=== PATIENT | female | born 1955 | race Caucasian/White ===

== ENCOUNTER 2018-04-04 18:53 | Emergency (ER) | payer OTHER ==
--- NOTE | 2018-04-04 19:00 | PDOC ---
Rapid Medical Evaluation Time Seen by Provider: 04/04/18 18:57 Medical Evaluation: 04/04/18 18:58 I have performed a brief in-person evaluation of this patient. The patient presents with a chief complaint of: b/l LE pain and itching x months , dx w/ ? b/l DVT on US today PMD Dr Ganga Lyles Pertinent physical exam findings:Legs unremarkable I have ordered the following:labs/US The patient will proceed to the ED for further evaluation. Discharge Disposition - Diagnosis Leg pain Qualifiers: Laterality: bilateral Qualified Code(s): M79.604 - Pain in right leg; M79.605 - Pain in left leg - Referrals - Patient Instructions - Post Discharge Activity
[2018-04-04 19:02] VITALS: BP 116/74; PULSE 85; TEMP 98.2; BMI 28.3
[2018-04-04] MEDS ORDERED: ACETAMINOPHEN 1000 MG/100 ML VIAL (NON FORMULARY) IVPB ONE (19:25)
--- NOTE | 2018-04-04 19:50 | PDOC ---
History of Present Illness - General Chief Complaint: Pain, Acute Stated Complaint: LEG PAIN Time Seen by Provider: 04/04/18 18:57 History Source: Patient - History of Present Illness Initial Comments: 04/04/18 19:44 The patient is a 62 year old Romanian speaking female with a PMH of dyslipidemia and chronic neck pain that presented to ED today complaining of lower extremity pain for two months that has been getting worse. It is worse in right leg than left, aggravating by walking, relieved by Ibuprophen. Today the pain is 8/10 in severity, located in thigh radiating down to her calf/ankles. She states that had DVT US in outpatient clinic. She denies immobility, DVT in the past, trauma, SOB, chest pain, palpitations. Severity: Yes: moderate Past History - Travel Traveled outside of the country in the last 30 days: No - Past Medical History Allergies/Adverse Reactions: Allergies Allergy/AdvReac Type Severity Reaction Status Date / Time No Known Allergies Allergy Verified 04/04/18 19:02 Home Medications: Ambulatory Orders Ibuprofen [Motrin -] 600 mg PO TID PRN 04/04/18 COPD: No Hypercholesterolemia: Yes - Suicide/Smoking/Psychosocial Hx Smoking History: Never smoked Review of Systems - Review of Systems Able to Perform ROS?: Yes Constitutional: No: Symptoms Reported HEENTM: Yes: Symptoms Reported, Eye Pain (right eye) Respiratory: No: Symptoms reported Cardiac (ROS): No: Symptoms Reported ABD/GI: No: Symptoms Reported Musculoskeletal: Yes: Symptoms Reported, See HPI, Neck Pain Neurological: No: Symptoms reported, Headache *Physical Exam - Vital Signs Last Vital Signs Temp Pulse Resp BP Pulse Ox 98.2 F 85 18 116/74 97 04/04/18 19:00 04/04/18 19:00 04/04/18 19:00 04/04/18 19:00 04/04/18 19:00 - Physical Exam General Appearance: Yes: Nourished, Appropriately Dressed HEENT: positive: EOMI Neck: positive: Trachea midline, Normal Thyroid. negative: Tender Respiratory/Chest: positive: Lungs Clear, Normal Breath Sounds Cardiovascular: positive: Regular Rhythm, Regular Rate, S1, S2. negative: Murmur Musculoskeletal: positive: Normal Inspection Extremity: positive: Normal Inspection, Tender (in right calf) Moderate Sedation - Procedure Monitoring Vital Signs: Procedure Monitoring Vital Signs Temperature 98.2 F 04/04/18 19:00 Pulse Rate 85 04/04/18 19:00 Respiratory Rate 18 04/04/18 19:00 Blood Pressure 116/74 04/04/18 19:00 O2 Sat by Pulse Oximetry (%) 97 04/04/18 19:00 ED Treatment Course - LABORATORY CBC & Chemistry Diagram: 04/04/18 20:50 04/04/18 22:45 Medical Decision Making - Medical Decision Making 04/04/18 19:54 The patient presented complaining of bilateral leg pain r more than left. Differential diagnosis includes DVT, pending Dupplex, CBC, CMP, coags, EKG. 04/05/18 00:15 labs came back normal, US dupplex of lower extremities negative for DVT. The patient is going to be discharged home with recommendation to follow up with her PCP. *DC/Admit/Observation/Transfer Diagnosis at time of Disposition: Leg pain Qualifiers: Laterality: bilateral Qualified Code(s): M79.604 - Pain in right leg - Discharge Dispostion Disposition: HOME Decision to Admit order: No - Referrals Referrals: Doug Martinez PA [Primary Care Provider] - 1 week - Patient Instructions Additional Instructions: You were evaluated in emergency room for leg pain. Your results (labwork and Dupplex of lower extremities) came back normal. Please follow up with your primary care physician. - Post Discharge Activity
[2018-04-04] MEDS ORDERED: ACETAMINOPHEN INJECTION 100 ML IVPB ONE (19:53)
[2018-04-04 20:01] LABS: INR 0.95 (0.83-1.09); PROTHROMBIN TIME (PATIENT) 11.2 SEC (9.7-13.0)
[2018-04-04 20:04] LABS: ACTIVATED PTT 20.9 SECONDS (25.2-36.5)
--- NOTE | 2018-04-04 20:15 | PDOC ---
Attending Attestation - HPI HPI: 04/04/18 20:39 The patient is a 62 year old female with a significant PMH of hyperlipidemia who presents to the emergency department with bilateral leg pain and swelling for more than 2 months. The patient reports that her leg pain worsened today by which she went to see her PCP who sent her here for further evaluation of possible blood clots in her legs bilaterally. The patient reports that her leg pain is greater in the right than the left .she states that she sometimes feels a hot sensation. The patient denies any recent significant travel, she denies any current smoking or control. She endorses some occasional beer drinking. The patient denies any family history of blood clots or DVT. The patient denies any other symptoms or complaints. - Physicial Exam PE: 04/04/18 20:40 GENERAL: Awake, alert, and fully oriented, in no acute distress HEAD: No signs of trauma EYES: PERRLA, EOMI, sclera anicteric, conjunctiva clear ENT: Auricles normal inspection, hearing grossly normal, nares patent, oropharynx clear without exudates. Moist mucosa NECK: Normal ROM, supple, no lymphadenopathy, JVD, or masses LUNGS: Breath sounds equal, clear to auscultation bilaterally. No wheezes, and no crackles HEART: Regular rate and rhythm, normal S1 and S2, no murmurs, rubs or gallops ABDOMEN: Soft, nontender, normoactive bowel sounds. No guarding, no rebound. No masses EXTREMITIES: (+)bilateral swelling in lower extremity. Trace pitting edema in ankle. Normal range of motion. No clubbing or cyanosis. No cords, erythema, or tenderness NEUROLOGICAL: Cranial nerves II through XII grossly intact. Normal speech, normal gait SKIN: Warm, Dry, normal turgor, no rashes or lesions noted. Documentation prepared by Flory Duarte, acting as esthetician and manager medical spa for Zoraida Garrison MD <Flory Duarte - Last Filed: 04/04/18 20:39> - Resident Resident Name: Leatha Saeed - ED Attending Attestation I have performed the following: I have examined & evaluated the patient, The case was reviewed & discussed with the resident, I agree w/resident's findings & plan, Exceptions are as noted - Medical Decision Making 11/30/18 20:14 I, Dr. Zoraida Garrison, DO, attest that this document has been prepared under my direction and personally reviewed by me in its entirety. I further attest, that it accurately reflects all work, treatment, procedures and medical decision -making performed by me. 04/04/18 20:14 a/p: 62yo female sent by her PMD clinic for eval of LE swelling and poss dvt -pt states ultrasound in the clinic showed extensive dvts in b/l LE -will send labs, repeat duplex ultrasound -will give tylenol for pain -denies fam hx of clots -denies smoking now- quit 2 years ago -denies sx or recent travel -will monitor and reassess 04/04/18 23:05 dvt study negative <Zoraida Garrison - Last Filed: 04/04/18 23:05> Heart Score/ECG Review - ECG Intrepretation Comment:: 04/04/18 20:33 sinus at 72, nl axis, nl interval, no acute st/t wave findings <Zoraida Garrison - Last Filed: 04/04/18 23:05>
[2018-04-04 20:53] LABS: WHITE BLOOD COUNT 6.8 K/mm3 (4.0-10.0)
[2018-04-04 20:54] LABS: EOS % 3.6 % (0-4.5); HEMATOCRIT 31.1 % (32.4-45.2); HEMOGLOBIN 10.9 GM/dL (10.7-15.3); LYMPH % 37.7 % (8-40); MCH 31.3 pg (25.7-33.7); MCHC 34.9 g/dl (32.0-36.0); MEAN CELL VOLUME 89.7 fl (80-96); MEAN PLT VOLUME 8.8 fl (7.5-11.1); MONO % 8.4 % (3.8-10.2); NEUT % 50.2 % (42.8-82.8); PLATELET COUNT 271 K/MM3 (134-434); RBC 3.47 M/mm3 (3.60-5.2); RDW 13.6 % (11.6-15.6)
[2018-04-04 20:55] LABS: BASO % 0.7 % (0-2.0)
[2018-04-04 23:19] LABS: ALBUMIN 3.5 g/dl (3.4-5.0); ALK PHOS 91 U/L (45-117); ANION GAP 7 MMOL/L (8-16); BILIRUBIN,TOTAL 0.3 mg/dL (0.2-1); BLOOD UREA NITROGEN 19 mg/dL (7-18); CALCIUM 8.8 mg/dL (8.5-10.1); CHLORIDE 104 mmol/L (98-107); CO2 28 mmol/L (21-32); CREATININE 0.7 mg/dL (0.55-1.3); GLUCOSE,RANDOM 90 mg/dL (74-106); POTASSIUM 4.3 mmol/L (3.5-5.1); SGOT/AST 23 U/L (15-37); SGPT/ALT 12 U/L (13-61); SODIUM 138 mmol/L (136-145); TOT PROT 6.8 g/dl (6.4-8.2)
[2018-04-04 23:47] LABS: N-TERMINAL BNP 51.8 pg/ml (5-125)
--- NOTE | 2018-04-05 17:15 | EKG ---
Test Reason : Blood Pressure : / mmHG Vent. Rate : 072 BPM Atrial Rate : 072 BPM P-R Int : 152 ms QRS Dur : 076 ms QT Int : 378 ms P-R-T Axes : 035 012 020 degrees QTc Int : 413 ms NORMAL SINUS RHYTHM LOW VOLTAGE QRS BORDERLINE ECG NO PREVIOUS ECGS AVAILABLE Confirmed by MD PRIMO, DEB ([id number]) on 04/05/2018 5:14:35 PM Referred By: Confirmed By:DEB TILLMAN MD
== END 2018-04-05 00:28 | disposition home or self-care (01) ==
LOC: JER 18:53
PROC: 3E033NZ Introduction of Analgesics, Hypnotics, Sedatives into Peripheral Vein, Percutaneous Approach (ICD-10-PCS; principal; 2018-04-04)
DX: M79.604 Pain in right leg (principal)
CPT/HCPCS: 36415; 80053; 83880; 85025; 85610; 85730; 93005; 93010; 93970-TC; 96374; 99284-25; J0131

== ENCOUNTER 2020-08-23 14:29 | Emergency (ER) | payer OTHER ==
[2020-08-23 14:37] VITALS: BP 130/70; PULSE 80; TEMP 98.2; BMI 265.7
[2020-08-23] MEDS ORDERED: ASPIRIN 81 MG CHEWABLE TABLETS PO ONE (15:39)
[2020-08-23] MEDS ORDERED: ACETAMINOPHEN 500 MG TABLET (FP) PO ONE (16:30)
[2020-08-23 18:50] LABS: BASO % 0.7 % (0-2.0); EOS % 1.5 % (0-4.5); HEMATOCRIT 37.1 % (32.4-45.2); HEMOGLOBIN 12.4 GM/dL (10.7-15.3); LYMPH % 32.9 % (8-40); MCH 30.4 pg (25.7-33.7); MCHC 33.4 g/dl (32.0-36.0); MEAN CELL VOLUME 90.9 fl (80-96); MEAN PLT VOLUME 8.4 fl (7.5-11.1); MONO % 10.8 % (3.8-10.2); NEUT % 54.1 % (42.8-82.8); PLATELET COUNT 572 K/MM3 (134-434); RBC 4.08 M/mm3 (3.60-5.2); RDW 13.3 % (11.6-15.6); WHITE BLOOD COUNT 7.7 K/mm3 (4.0-10.0)
[2020-08-23 18:52] LABS: CHLORIDE 98 mmol/L (98-107); SODIUM 136 mmol/L (136-145)
[2020-08-23 18:54] LABS: ALBUMIN 3.4 g/dl (3.4-5.0); CALCIUM 9.7 mg/dL (8.5-10.1)
[2020-08-23 18:55] LABS: ANION GAP 6 MMOL/L (8-16); BLOOD UREA NITROGEN 22.7 mg/dL (7-18); CO2 32 mmol/L (21-32); GLUCOSE,RANDOM 81 mg/dL (74-106); MAGNESIUM 2.6 mg/dL (1.8-2.4)
[2020-08-23 18:56] LABS: INR 1.05 (0.83-1.09); PROTHROMBIN TIME (PATIENT) 12.9 SEC (9.7-13.0)
[2020-08-23 18:58] LABS: ACTIVATED PTT 32.3 SECONDS (25.2-36.5); CREATININE 0.7 mg/dL (0.55-1.3); SGOT/AST 21 U/L (15-37); SGPT/ALT 16 U/L (13-61)
[2020-08-23 18:58] LABS: URINE APPEARANCE CLEAR; URINE BILIRUBIN NEGATIVE (NEGATIVE); URINE COLOR DK YELLOW; URINE GLUCOSE (UA) NEGATIVE (NEGATIVE); URINE KETONE NEGATIVE (NEGATIVE); URINE LEUK ESTERASE NEGATIVE (NEGATIVE); URINE NITRITE NEGATIVE (NEGATIVE); URINE PROTEIN NEGATIVE (NEGATIVE); URINE UROBILINOGEN 0.2 mg/dL (0.2-1.0)
[2020-08-23 18:59] LABS: BILIRUBIN,TOTAL 0.3 mg/dL (0.2-1); TOT PROT 7.2 g/dl (6.4-8.2)
[2020-08-23 19:00] LABS: ALK PHOS 94 U/L (45-117)
== END 2020-08-23 19:41 | disposition home or self-care (01) ==
LOC: JER 14:29
DX: U07.1 COVID-19 (principal)
CPT/HCPCS: 36415; 71046-TC-FY; 80053; 81003; 82550; 83735; 84484; 85025; 85610; 85730; 93005; 93010; 99284-25